=== PATIENT | male | born 1945 | race Caucasian/White ===

== ENCOUNTER 2024-11-12 12:21 | Outpatient (CLI) | payer MEDICARE, OTHER ==
--- NOTE | 2024-11-12 13:51 | RADIOLOGY REPORT ---
CLINICAL INDICATION: ACUTE PAIN IN RIGHT KNEE TECHNIQUE: 3 radiographic views of the right knee were obtained. Comparison: None FINDINGS/IMPRESSION: There is no evidence of acute fracture or dislocation. Status post right medial knee hemiarthroplasty. Moderate tricompartmental knee joint osteoarthrosis.
--- NOTE | 2024-11-12 14:38 | VASCULAR REPORT ---
Right lower extremity venous duplex Clinical History: Comparison: None Findings: Duplex Doppler evaluation of the deep venous system of the right lower extremity from the common femo ral vein to the popliteal vein including color Doppler and spectral/pulsed waveform analysis was perf ormed. The common femoral vein demonstrates appropriate compressibility and waveform variability . There is compressibility/patency of the great saphenous vein at the proximal thigh . The femoral vein demonstrates appropriate compressibility and waveform variability . The deep femoral vein demonstrates appropriate compressibility and waveform variability . The popliteal vein demonstrates appropriate compressibility and waveform variability . There is normal compressibility at the tibioperoneal trunk. Left common femoral vein is patent. Impression: No right femoropopliteal venous thrombosis. If clinical concern/symptoms persist or worsen, short-interval follow-up study is suggested.
== END 2024-11-12 23:59 | disposition home or self-care (01) ==
LOC: RAD 12:21
PROVIDERS: ATTEND Nurse Practitioner
DX: M17.11 Unilateral primary osteoarthritis, right knee (principal); M25.561 Pain in right knee; M79.89 Other specified soft tissue disorders; Z96.651 Presence of right artificial knee joint
CPT/HCPCS: 73564; 93971